=== PATIENT | male | born 1965 | race Caucasian/White ===

== ENCOUNTER 2023-01-23 12:23 | Outpatient (CLI) | payer BC | END 2023-01-23 12:24 | disposition home or self-care (01) | LOC: CT 12:23 | PROVIDERS: ATTEND Family Medicine | DX: R51.9 Headache, unspecified (principal) | CPT/HCPCS: 70450 ==

== ENCOUNTER 2023-09-24 15:20 | Emergency (ER) | payer BC ==
[2023-09-24] MEDS ORDERED: Bacitracin 1 PK ONE (18:07)
== END 2023-09-24 18:05 | disposition home or self-care (01) ==
LOC: ERS 15:20
DX: S16.1XXA Strain of muscle, fascia and tendon at neck level, initial encounter (principal); S09.90XA Unspecified injury of head, initial encounter; V89.2XXA Person injured in unspecified motor-vehicle accident, traffic, initial encounter
CPT/HCPCS: 70450; 72125

== ENCOUNTER 2023-10-03 12:44 | Outpatient (CLI) | payer BC | END 2023-10-03 12:45 | disposition home or self-care (01) | LOC: SCSRAD 12:44 | PROVIDERS: ATTEND Family Medicine | DX: M25.521 Pain in right elbow (principal) ==

== ENCOUNTER 2023-11-21 08:06 | Outpatient (CLI) | payer BC | END 2023-11-21 08:07 | disposition home or self-care (01) | LOC: BICRAD 08:06 | PROVIDERS: ATTEND Family Medicine | DX: S52.134D Nondisplaced fracture of neck of right radius, subsequent encounter for closed fracture with routine healing (principal) ==

== ENCOUNTER 2024-01-03 13:36 | Outpatient (CLI) | payer BC | END 2024-01-03 13:37 | disposition home or self-care (01) | LOC: BICRAD 13:36 | PROVIDERS: ATTEND Family Medicine | DX: S52.13 Fracture of neck of radius (principal) ==

== ENCOUNTER 2024-12-20 10:21 | Outpatient (CLI) | payer BC | END 2024-12-20 10:22 | disposition home or self-care (01) | LOC: SCSRAD 10:21 | PROVIDERS: ATTEND Family Medicine | DX: M25.552 Pain in left hip (principal); M16.12 Unilateral primary osteoarthritis, left hip ==